=== PATIENT | male | born 1960 | race Caucasian/White ===

== ENCOUNTER 2023-04-22 12:07 | Inpatient (IN) | payer OTHER ==
[~2023-04-22] VITALS: Ht 172.7 cm; Wt 86.2 kg
[2023-04-22] MEDS ORDERED: DEXAMETHASONE SOD PHOSPHATE 4 MG INJ IV ONE (12:15)
[2023-04-22] MEDS ORDERED: IV NORMAL SALINE 1000 ML BAG IV ONE (12:15)
[2023-04-22] MEDS ORDERED: CEFTRIAXONE 1 G in IV DEXTROSE 5% 50 ML IV ONE (12:15)
[2023-04-22] MEDS ORDERED: AZITHROMYCIN 250 MG TABLET PO ONE (12:15)
[2023-04-22] MEDS ORDERED: VANCOMYCIN IV 1,000 MG in IV DEXTROSE 5% 250 ML IV ONE (12:15)
[2023-04-22 12:52] LABS: BASOPHILS # (AUTO) 0.1 K/UL (0.0-0.2); BASOPHILS % (AUTO) 0.7 % (0.0-2.0); EOSINOPHILS % (AUTO) 0.3 % (0.0-7.0); HEMATOCRIT 39.9 % (36.7-47.1); HEMOGLOBIN 13.9 g/dL (12.5-16.3); LYMPHOCYTES # (AUTO) 0.8 K/uL (0.8-4.8); MEAN CORPUSCULAR HEMOGLOBIN 30.3 uug (23.8-33.4); MEAN CORPUSCULAR HGB CONC 35 g/dL (32.5-36.3); MEAN CORPUSCULAR VOLUME 87.1 fL (73.0-96.2); MONOCYTES # (AUTO) 1.3 K/uL (0.1-1.30); MONOCYTES % (AUTO) 13.2 % (0.0-11.0); NEUTROPHILS # (AUTO) 7.7 K/uL (1.8-8.9); NEUTROPHILS % (AUTO) 77.8 % (38.5-71.5); PLATELET COUNT (AUTO) 250 K/uL (152-348); RED BLOOD CELL COUNT(AUTO) 4.59 MIL/uL (4.06-5.63); RED CELL DISTRIBUTION WIDTH 12.6 % (12.1-16.2); WHITE BLOOD COUNT (AUTO) 9.9 K/uL (3.6-10.2)
[2023-04-22 12:59] LABS: DIFFERENTIAL COMMENT 1
[2023-04-22] MEDS ORDERED: AZITHROMYCIN 250 MG TABLET ONE (13:00)
[2023-04-22] MEDS ORDERED: VANCOMYCIN IV 200 ML ONE (13:00)
[2023-04-22] MEDS ORDERED: CEFTRIAXONE /D5W 50ML IVPB **ER PYXIS IV ONE (13:00)
[2023-04-22] MEDS ORDERED: DEXAMETHASONE SOD PHOSPHATE 10 MG INJ ONE (14:06)
[2023-04-22 14:08] LABS: LACTATE DEHYDROGENASE 139 U/L (85-227)
[2023-04-22 14:44] LABS: CALCIUM 9.4 mg/dL (8.5-10.1); CARBON DIOXIDE 24 mmol/L (21-32); CHLORIDE 98 mmol/L (98-107); CREATININE 1.1 mg/dL (0.6-1.3); GLUCOSE 117 mg/dL (74-106); POTASSIUM 3.5 mmol/L (3.5-5.1); SODIUM SERUM 134 mmol/L (136-145); UREA NITROGEN, BLOOD 16 mg/dL (7-18)
[2023-04-22 14:57] LABS: ALANINE AMINOTRANSFERASE 19 U/L (16-63); ALBUMIN 2.9 g/dL (3.4-5.0); ALKALINE PHOSPHATASE 58 U/L (50-136); ASPARTATE AMINOTRANSFERASE 12 U/L (15-37); BILIRUBIN,DIRECT 0.2 mg/dL (0.0-0.2); BILIRUBIN,TOTAL 0.6 mg/dL (0.2-1.0); NT-PRO BNP 195 pg/mL (0-125); TOTAL PROTEIN, SERUM 7.1 g/dL (6.4-8.2)
[2023-04-22] MEDS ORDERED: IOHEXOL 300MG/ML 100 ML INFUS..BTL ONE (15:21)
[2023-04-22] MEDS ORDERED: SWABABLE VALVE TRANSFER SET EA MC ONE (15:21)
[2023-04-22] MEDS ORDERED: IV NORMAL SALINE 250 ML IV ONE (15:21)
[2023-04-22 15:50] LABS: FERRITIN 464 ng/mL (26-388)
[2023-04-22 18:14] VITALS: O2SAT 96
[2023-04-22] MEDS ORDERED: ACETAMINOPHEN 325 MG TABLET PO PRN (18:30)
[2023-04-22] MEDS ORDERED: ACETAMINOPHEN 650 MG SUPP.RECT RC PRN (18:30)
[2023-04-22 20:55] VITALS: O2SAT 94
[2023-04-22 23:03] VITALS: BP 136/78; TEMP 98.7; O2SAT 96
[2023-04-23 04:24] VITALS: O2SAT 94
[2023-04-23 04:40] VITALS: BP 113/58; TEMP 98.6; O2SAT 93
[2023-04-23 05:15] LABS: ABG BASE EXCESS 2.4 mmol/L; ABG PH 7.465 (7.350-7.450); ABG SITE RIGHT RADIAL; ABG TOTAL HEMOGLOBIN 14.2 G/dL (13.5-18.0); COHb 0.5 % (0.5-1.5); MetHb 0.3 % (0.0-1.5); O2Hb 92.1 % (94.0-97.0)
[2023-04-23 07:16] LABS: BASOPHILS % (AUTO) 0.1 % (0.0-2.0); EOSINOPHILS % (AUTO) 0.1 % (0.0-7.0); HEMATOCRIT 38.5 % (36.7-47.1); HEMOGLOBIN 13.6 g/dL (12.5-16.3); LYMPHOCYTES # (AUTO) 0.6 K/uL (0.8-4.8); LYMPHOCYTES % (AUTO) 9.1 % (20.5-51.5); MEAN CORPUSCULAR HEMOGLOBIN 30.4 uug (23.8-33.4); MEAN CORPUSCULAR HGB CONC 35 g/dL (32.5-36.3); MEAN CORPUSCULAR VOLUME 86.4 fL (73.0-96.2); MONOCYTES # (AUTO) 0.3 K/uL (0.1-1.30); MONOCYTES % (AUTO) 5.2 % (0.0-11.0); NEUTROPHILS # (AUTO) 5.5 K/uL (1.8-8.9); NEUTROPHILS % (AUTO) 85.5 % (38.5-71.5); PLATELET COUNT (AUTO) 291 K/uL (152-348); RED BLOOD CELL COUNT(AUTO) 4.46 MIL/uL (4.06-5.63); RED CELL DISTRIBUTION WIDTH 12.7 % (12.1-16.2); WHITE BLOOD COUNT (AUTO) 6.5 K/uL (3.6-10.2)
[2023-04-23 07:32] LABS: DIFFERENTIAL COMMENT 1
[2023-04-23 07:36] LABS: ALBUMIN 2.8 g/dL (3.4-5.0); BILIRUBIN,TOTAL 0.4 mg/dL (0.2-1.0); CALCIUM 9.1 mg/dL (8.5-10.1); CREATININE 1.1 mg/dL (0.6-1.3); TOTAL PROTEIN, SERUM 7.3 g/dL (6.4-8.2)
[2023-04-23 07:44] LABS: IRON, SERUM 20 ug/dL (50-175)
[2023-04-23] MEDS: DEXAMETHASONE SOD PHOSPHATE 4 MG INJ IV SCH (09:08)
[2023-04-23] MEDS: ENOXAPARIN SODIUM 40 MG/0.4 ML DISP.SYRIN SQ SCH (09:09)
[2023-04-23] MEDS: ALBUTEROL SULFATE 8 GM HFA.AER.AD IH PRN ×2 (09:26→19:02)
[2023-04-23] MEDS ORDERED: BENZONATATE 100 MG CAPSULE PO PRN (10:15)
[2023-04-23] MEDS ORDERED: SULFACETAMIDE SOD 10% OPHT DR 15 ML BOTTLE EACHEYE SCH (11:31)
[2023-04-23 11:54] VITALS: BP 132/72; TEMP 98.2; O2SAT 93
[2023-04-23 12:00] VITALS: O2SAT 93
[2023-04-23] MEDS ORDERED: REMDESIVIR (CHARGED) 200 MG in IV NORMAL SALINE 210 ML IV ONE (12:00)
[2023-04-23] MEDS: SULFACETAMIDE SOD 10% OPHT DR 15 ML BOTTLE EACHEYE SCH ×2 (12:36→21:05)
[2023-04-23] MEDS: CEFTRIAXONE 1 G in IV DEXTROSE 5% 50 ML IV SCH (14:24)
[2023-04-23] MEDS: AZITHROMYCIN IV 500 MG in IV DEXTROSE 5% 250 ML IV SCH (15:07)
[2023-04-23 19:58] VITALS: BP 124/62; TEMP 97.7; O2SAT 94
[2023-04-23] MEDS: TEMAZEPAM 15 MG CAPSULE PO PRN (20:51)
[2023-04-23 23:55] VITALS: BP 135/55; TEMP 97.1; O2SAT 93
[2023-04-24 05:29] VITALS: O2SAT 95
[2023-04-24 05:30] VITALS: BP 133/69; TEMP 97.1; O2SAT 95
[2023-04-24 07:05] LABS: HEMATOCRIT 39.4 % (36.7-47.1); HEMOGLOBIN 13.7 g/dL (12.5-16.3); LYMPHOCYTES % (AUTO) 5.9 % (20.5-51.5); MEAN CORPUSCULAR HEMOGLOBIN 30.1 uug (23.8-33.4); MEAN CORPUSCULAR HGB CONC 35 g/dL (32.5-36.3); MEAN CORPUSCULAR VOLUME 86.7 fL (73.0-96.2); MONOCYTES # (AUTO) 0.6 K/uL (0.1-1.30); MONOCYTES % (AUTO) 3.5 % (0.0-11.0); NEUTROPHILS # (AUTO) 14.5 K/uL (1.8-8.9); NEUTROPHILS % (AUTO) 90.6 % (38.5-71.5); PLATELET COUNT (AUTO) 324 K/uL (152-348); RED BLOOD CELL COUNT(AUTO) 4.54 MIL/uL (4.06-5.63); RED CELL DISTRIBUTION WIDTH 12.6 % (12.1-16.2); WHITE BLOOD COUNT (AUTO) 16.1 K/uL (3.6-10.2)
[2023-04-24 07:19] LABS: DIFFERENTIAL COMMENT 1
[2023-04-24 07:30] LABS: ALANINE AMINOTRANSFERASE 20 U/L (16-63); ALBUMIN 2.6 g/dL (3.4-5.0); ALKALINE PHOSPHATASE 54 U/L (50-136); ASPARTATE AMINOTRANSFERASE 18 U/L (15-37); BILIRUBIN,DIRECT < 0.1 mg/dL (0.0-0.2); BILIRUBIN,TOTAL 0.3 mg/dL (0.2-1.0); CALCIUM 9.1 mg/dL (8.5-10.1); CARBON DIOXIDE 29 mmol/L (21-32); CHLORIDE 103 mmol/L (98-107); CREATININE 0.9 mg/dL (0.6-1.3); GLUCOSE 138 mg/dL (74-106); POTASSIUM 4.3 mmol/L (3.5-5.1); SODIUM SERUM 137 mmol/L (136-145); TOTAL PROTEIN, SERUM 6.7 g/dL (6.4-8.2); UREA NITROGEN, BLOOD 22 mg/dL (7-18)
[2023-04-24 08:48] LABS: C-REACTIVE PROTEIN 4.4 mg/dL (0.0-0.9)
[2023-04-24] MEDS: SULFACETAMIDE SOD 10% OPHT DR 15 ML BOTTLE EACHEYE SCH ×3 (09:00→21:13)
[2023-04-24] MEDS: DEXAMETHASONE SOD PHOSPHATE 4 MG INJ IV SCH (10:23)
[2023-04-24] MEDS: ENOXAPARIN SODIUM 40 MG/0.4 ML DISP.SYRIN SQ SCH (10:25)
[2023-04-24] MEDS: CEFTRIAXONE 1 G in IV DEXTROSE 5% 50 ML IV SCH (12:08)
[2023-04-24] MEDS: REMDESIVIR (CHARGED) 100 MG in IV NORMAL SALINE 100 ML IV SCH (12:08)
[2023-04-24] MEDS: AZITHROMYCIN IV 500 MG in IV DEXTROSE 5% 250 ML IV SCH (13:20)
[2023-04-24 17:11] VITALS: O2SAT 93
[2023-04-24 20:00] VITALS: BP 134/72; TEMP 98; O2SAT 95
[2023-04-24] MEDS: TEMAZEPAM 15 MG CAPSULE PO PRN (21:33)
[2023-04-25] VITALS (7 sets, daily range): BP systolic 124–147; BP diastolic 64–72; TEMP 97.4–97.8; O2SAT 93–96
[2023-04-25 08:02] LABS: BASOPHILS % (AUTO) 0.1 % (0.0-2.0); HEMATOCRIT 38.5 % (36.7-47.1); HEMOGLOBIN 13.4 g/dL (12.5-16.3); LYMPHOCYTES # (AUTO) 0.9 K/uL (0.8-4.8); MEAN CORPUSCULAR HGB CONC 35 g/dL (32.5-36.3); MEAN CORPUSCULAR VOLUME 86.3 fL (73.0-96.2); MONOCYTES # (AUTO) 0.6 K/uL (0.1-1.30); MONOCYTES % (AUTO) 4.8 % (0.0-11.0); NEUTROPHILS # (AUTO) 11.8 K/uL (1.8-8.9); NEUTROPHILS % (AUTO) 88.1 % (38.5-71.5); PLATELET COUNT (AUTO) 343 K/uL (152-348); RED BLOOD CELL COUNT(AUTO) 4.46 MIL/uL (4.06-5.63); RED CELL DISTRIBUTION WIDTH 12.6 % (12.1-16.2); WHITE BLOOD COUNT (AUTO) 13.4 K/uL (3.6-10.2)
[2023-04-25 08:20] LABS: DIFFERENTIAL COMMENT 1
[2023-04-25 08:39] LABS: ALBUMIN 2.4 g/dL (3.4-5.0); BILIRUBIN,DIRECT 0.1 mg/dL (0.0-0.2); BILIRUBIN,TOTAL 0.3 mg/dL (0.2-1.0); CALCIUM 8.5 mg/dL (8.5-10.1); CREATININE 0.9 mg/dL (0.6-1.3); POTASSIUM 4.2 mmol/L (3.5-5.1); TOTAL PROTEIN, SERUM 6.2 g/dL (6.4-8.2)
[2023-04-25] MEDS ORDERED: FUROSEMIDE 40 MG/4 ML VIAL IV SCH (10:30)
[2023-04-25] MEDS ORDERED: FUROSEMIDE 20 MG/2 ML VIAL IVP ONE (10:45)
[2023-04-25] MEDS: DEXAMETHASONE SOD PHOSPHATE 4 MG INJ IV SCH (11:17)
[2023-04-25] MEDS: ENOXAPARIN SODIUM 40 MG/0.4 ML DISP.SYRIN SQ SCH (11:28)
[2023-04-25] MEDS: REMDESIVIR (CHARGED) 100 MG in IV NORMAL SALINE 100 ML IV SCH (11:29)
[2023-04-25] MEDS: SULFACETAMIDE SOD 10% OPHT DR 15 ML BOTTLE EACHEYE SCH ×4 (12:10→22:38)
[2023-04-25] MEDS: CEFTRIAXONE 1 G in IV DEXTROSE 5% 50 ML IV SCH (13:13)
[2023-04-25] MEDS: AZITHROMYCIN IV 500 MG in IV DEXTROSE 5% 250 ML IV SCH (13:52)
[2023-04-26] VITALS (8 sets, daily range): BP systolic 123–152; BP diastolic 65–81; TEMP 97.5–98.6; O2SAT 90–98
[2023-04-26] MEDS: TEMAZEPAM 15 MG CAPSULE PO PRN ×2 (00:51→21:54)
[2023-04-26 07:05] LABS: BASOPHILS % (AUTO) 0.2 % (0.0-2.0); HEMATOCRIT 41.6 % (36.7-47.1); HEMOGLOBIN 14.4 g/dL (12.5-16.3); LYMPHOCYTES # (AUTO) 1.1 K/uL (0.8-4.8); LYMPHOCYTES % (AUTO) 8.4 % (20.5-51.5); MEAN CORPUSCULAR HEMOGLOBIN 29.8 uug (23.8-33.4); MEAN CORPUSCULAR HGB CONC 35 g/dL (32.5-36.3); MEAN CORPUSCULAR VOLUME 86.4 fL (73.0-96.2); MONOCYTES # (AUTO) 0.9 K/uL (0.1-1.30); MONOCYTES % (AUTO) 6.4 % (0.0-11.0); NEUTROPHILS # (AUTO) 11.6 K/uL (1.8-8.9); PLATELET COUNT (AUTO) 336 K/uL (152-348); RED BLOOD CELL COUNT(AUTO) 4.82 MIL/uL (4.06-5.63); RED CELL DISTRIBUTION WIDTH 12.5 % (12.1-16.2); WHITE BLOOD COUNT (AUTO) 13.7 K/uL (3.6-10.2)
[2023-04-26 07:13] LABS: DIFFERENTIAL COMMENT 1
[2023-04-26 07:16] LABS: ALBUMIN 2.6 g/dL (3.4-5.0); BILIRUBIN,DIRECT 0.1 mg/dL (0.0-0.2); BILIRUBIN,TOTAL 0.3 mg/dL (0.2-1.0); CALCIUM 8.6 mg/dL (8.5-10.1); POTASSIUM 4.1 mmol/L (3.5-5.1); TOTAL PROTEIN, SERUM 6.3 g/dL (6.4-8.2)
[2023-04-26] MEDS: ALBUTEROL SULFATE 8 GM HFA.AER.AD IH PRN (08:00)
[2023-04-26] MEDS: DEXAMETHASONE SOD PHOSPHATE 4 MG INJ IV SCH (08:18)
[2023-04-26] MEDS: SULFACETAMIDE SOD 10% OPHT DR 15 ML BOTTLE EACHEYE SCH ×3 (08:19→21:54)
[2023-04-26] MEDS: ENOXAPARIN SODIUM 40 MG/0.4 ML DISP.SYRIN SQ SCH (08:21)
[2023-04-26] MEDS: REMDESIVIR (CHARGED) 100 MG in IV NORMAL SALINE 100 ML IV SCH (11:19)
[2023-04-26] MEDS: CEFTRIAXONE 1 G in IV DEXTROSE 5% 50 ML IV SCH (12:27)
[2023-04-26] MEDS: AZITHROMYCIN IV 500 MG in IV DEXTROSE 5% 250 ML IV SCH (13:56)
[2023-04-27 05:19] VITALS: O2SAT 92
[2023-04-27 05:51] LABS: *AMPHETAMINE, URINE NEGATIVE (NEGATIVE); *BARBITURATE, URINE NEGATIVE (NEGATIVE); *BENZODIAZEPINE, URINE NEGATIVE (NEGATIVE); *CANNABINOID, URINE NEGATIVE (NEGATIVE); *COCCAINE, URINE NEGATIVE (NEGATIVE); *OPIATE, URINE NEGATIVE (NEGATIVE); *PHENCYCLIDINE SCREEN,URINE NEGATIVE (NEGATIVE); FENTANYL, URINE NEGATIVE (NEGATIVE)
[2023-04-27 07:09] LABS: BASOPHILS % (AUTO) 0.3 % (0.0-2.0); DIFFERENTIAL COMMENT 1; EOSINOPHILS % (AUTO) 0.1 % (0.0-7.0); HEMATOCRIT 44.2 % (36.7-47.1); HEMOGLOBIN 15.3 g/dL (12.5-16.3); LYMPHOCYTES # (AUTO) 1.6 K/uL (0.8-4.8); LYMPHOCYTES % (AUTO) 11.4 % (20.5-51.5); MEAN CORPUSCULAR HEMOGLOBIN 29.9 uug (23.8-33.4); MEAN CORPUSCULAR HGB CONC 35 g/dL (32.5-36.3); MEAN CORPUSCULAR VOLUME 86.1 fL (73.0-96.2); MONOCYTES % (AUTO) 7.3 % (0.0-11.0); NEUTROPHILS # (AUTO) 11.6 K/uL (1.8-8.9); NEUTROPHILS % (AUTO) 80.9 % (38.5-71.5); PLATELET COUNT (AUTO) 365 K/uL (152-348); RED BLOOD CELL COUNT(AUTO) 5.13 MIL/uL (4.06-5.63); RED CELL DISTRIBUTION WIDTH 12.6 % (12.1-16.2); WHITE BLOOD COUNT (AUTO) 14.3 K/uL (3.6-10.2)
[2023-04-27 07:32] LABS: ALBUMIN 2.7 g/dL (3.4-5.0); BILIRUBIN,DIRECT 0.1 mg/dL (0.0-0.2); BILIRUBIN,TOTAL 0.4 mg/dL (0.2-1.0); CALCIUM 8.7 mg/dL (8.5-10.1); CREATININE 0.9 mg/dL (0.6-1.3); POTASSIUM 4.1 mmol/L (3.5-5.1); TOTAL PROTEIN, SERUM 6.4 g/dL (6.4-8.2)
[2023-04-27] MEDS: DEXAMETHASONE SOD PHOSPHATE 4 MG INJ IV SCH (09:30)
[2023-04-27] MEDS: SULFACETAMIDE SOD 10% OPHT DR 15 ML BOTTLE EACHEYE SCH ×3 (09:30→21:05)
[2023-04-27] MEDS: ENOXAPARIN SODIUM 40 MG/0.4 ML DISP.SYRIN SQ SCH (09:31)
[2023-04-27] MEDS: REMDESIVIR (CHARGED) 100 MG in IV NORMAL SALINE 100 ML IV SCH (12:20)
[2023-04-27] MEDS: CEFTRIAXONE 1 G in IV DEXTROSE 5% 50 ML IV SCH (13:25)
[2023-04-27 15:00] VITALS: O2SAT 96
[2023-04-27 16:32] VITALS: BP 126/68; TEMP 98.1; O2SAT 92
[2023-04-27 20:50] VITALS: BP 118/68; TEMP 98.1; O2SAT 96
[2023-04-27 20:57] VITALS: O2SAT 96
[2023-04-27] MEDS: TEMAZEPAM 15 MG CAPSULE PO PRN (21:05)
[2023-04-28 00:18] VITALS: BP 147/79; TEMP 98.2; O2SAT 96
[2023-04-28 04:20] VITALS: BP 114/74; TEMP 98; O2SAT 94
[2023-04-28 06:13] LABS: BASOPHILS % (AUTO) 0.2 % (0.0-2.0); EOSINOPHILS # (AUTO) 0.1 K/uL (0.0-0.7); EOSINOPHILS % (AUTO) 0.6 % (0.0-7.0); HEMATOCRIT 42.8 % (36.7-47.1); HEMOGLOBIN 14.8 g/dL (12.5-16.3); LYMPHOCYTES # (AUTO) 1.9 K/uL (0.8-4.8); LYMPHOCYTES % (AUTO) 14.6 % (20.5-51.5); MEAN CORPUSCULAR HEMOGLOBIN 29.9 uug (23.8-33.4); MEAN CORPUSCULAR HGB CONC 35 g/dL (32.5-36.3); MEAN CORPUSCULAR VOLUME 86.2 fL (73.0-96.2); MONOCYTES # (AUTO) 0.9 K/uL (0.1-1.30); NEUTROPHILS # (AUTO) 9.8 K/uL (1.8-8.9); NEUTROPHILS % (AUTO) 77.6 % (38.5-71.5); PLATELET COUNT (AUTO) 360 K/uL (152-348); RED BLOOD CELL COUNT(AUTO) 4.96 MIL/uL (4.06-5.63); RED CELL DISTRIBUTION WIDTH 12.6 % (12.1-16.2); WHITE BLOOD COUNT (AUTO) 12.7 K/uL (3.6-10.2)
[2023-04-28 06:15] LABS: DIFFERENTIAL COMMENT 1
[2023-04-28 06:48] LABS: ALBUMIN 2.7 g/dL (3.4-5.0); C-REACTIVE PROTEIN 0.6 mg/dL (0.0-0.9); CALCIUM 8.7 mg/dL (8.5-10.1); MAGNESIUM 2.5 mg/dL (1.8-2.4)
[2023-04-28 07:22] LABS: BILIRUBIN,DIRECT 0.1 mg/dL (0.0-0.2); BILIRUBIN,TOTAL 0.5 mg/dL (0.2-1.0); PHOSPHOROUS 3.7 mg/dL (2.5-4.9); TOTAL PROTEIN, SERUM 6.3 g/dL (6.4-8.2)
[2023-04-28 07:54] VITALS: BP 141/77; TEMP 97.3; O2SAT 93
[2023-04-28] MEDS: SULFACETAMIDE SOD 10% OPHT DR 15 ML BOTTLE EACHEYE SCH ×3 (09:14→21:52)
[2023-04-28] MEDS: DEXAMETHASONE SOD PHOSPHATE 4 MG INJ IV SCH (09:14)
[2023-04-28] MEDS: ENOXAPARIN SODIUM 40 MG/0.4 ML DISP.SYRIN SQ SCH (09:16)
[2023-04-28] MEDS ORDERED: REMDESIVIR (CHARGED) 100 MG in IV NORMAL SALINE 230 ML IV SCH (12:00)
[2023-04-28] MEDS: CEFTRIAXONE 1 G in IV DEXTROSE 5% 50 ML IV SCH (14:08)
[2023-04-28] MEDS ORDERED: IOHEXOL 350 100 ML INFUS..BTL ONE (15:53)
[2023-04-28] MEDS ORDERED: IV NORMAL SALINE 250 ML IV ONE (15:53)
[2023-04-28] MEDS ORDERED: SWABABLE VALVE TRANSFER SET EA MC ONE (15:53)
[2023-04-28 16:37] VITALS: O2SAT 94
[2023-04-28 20:50] VITALS: O2SAT 96
[2023-04-28 21:50] VITALS: TEMP 98.2; O2SAT 95
[2023-04-28] MEDS: TEMAZEPAM 15 MG CAPSULE PO PRN (21:58)
[2023-04-29 04:51] VITALS: BP 138/76; TEMP 98; O2SAT 98
[2023-04-29 05:43] LABS: BASOPHILS % (AUTO) 0.2 % (0.0-2.0); EOSINOPHILS # (AUTO) 0.1 K/uL (0.0-0.7); EOSINOPHILS % (AUTO) 0.8 % (0.0-7.0); HEMATOCRIT 42.8 % (36.7-47.1); HEMOGLOBIN 14.8 g/dL (12.5-16.3); LYMPHOCYTES # (AUTO) 1.7 K/uL (0.8-4.8); LYMPHOCYTES % (AUTO) 12.4 % (20.5-51.5); MEAN CORPUSCULAR HEMOGLOBIN 29.8 uug (23.8-33.4); MEAN CORPUSCULAR HGB CONC 35 g/dL (32.5-36.3); MEAN CORPUSCULAR VOLUME 86.3 fL (73.0-96.2); MONOCYTES # (AUTO) 0.9 K/uL (0.1-1.30); MONOCYTES % (AUTO) 6.4 % (0.0-11.0); NEUTROPHILS % (AUTO) 80.2 % (38.5-71.5); PLATELET COUNT (AUTO) 360 K/uL (152-348); RED BLOOD CELL COUNT(AUTO) 4.96 MIL/uL (4.06-5.63); RED CELL DISTRIBUTION WIDTH 12.5 % (12.1-16.2); WHITE BLOOD COUNT (AUTO) 13.7 K/uL (3.6-10.2)
[2023-04-29 06:14] VITALS: BP 157/96; O2SAT 95
[2023-04-29 06:21] LABS: DIFFERENTIAL COMMENT 1
[2023-04-29 06:41] LABS: ALBUMIN 2.6 g/dL (3.4-5.0); BILIRUBIN,DIRECT 0.1 mg/dL (0.0-0.2); BILIRUBIN,TOTAL 0.4 mg/dL (0.2-1.0); CALCIUM 8.4 mg/dL (8.5-10.1); CREATININE 0.9 mg/dL (0.6-1.3); POTASSIUM 4.2 mmol/L (3.5-5.1)
[2023-04-29] MEDS: DEXAMETHASONE SOD PHOSPHATE 4 MG INJ IV SCH (08:53)
[2023-04-29] MEDS: [UNRECOGNIZED DRUG - OTHER] PO SCH (08:53)
[2023-04-29] MEDS: SULFACETAMIDE SOD 10% OPHT DR 15 ML BOTTLE EACHEYE SCH ×3 (08:53→20:06)
[2023-04-29] MEDS: ENOXAPARIN SODIUM 40 MG/0.4 ML DISP.SYRIN SQ SCH (09:35)
[2023-04-29 10:23] LABS: BAND % (MANUAL) 2 % (0-10); EOSINOPHILS % (MANUAL) 3 % (0-8); LYMPHOCYTES % (MANUAL) 11 % (20-40); MONOCYTES % (MANUAL) 8 % (2-10); NEUTROPHILS % (MANUAL) 73 % (42-75); REACTIVE LYMPHOCYTES 3 % (0-0)
[2023-04-29 10:24] LABS: PLATELET ESTIMATE ADEQUATE
[2023-04-29 11:18] VITALS: BP 134/79; TEMP 98.2; O2SAT 92
[2023-04-29] MEDS: REMDESIVIR (CHARGED) 100 MG in IV NORMAL SALINE 100 ML IV SCH (11:52)
[2023-04-29] MEDS ORDERED: REMDESIVIR (CHARGED)100 MG in IV NORMAL SALINE 250 ML IV SCH (12:00)
[2023-04-29] MEDS: CEFTRIAXONE 1 G in IV DEXTROSE 5% 50 ML IV SCH (13:03)
[2023-04-29 16:15] VITALS: O2SAT 94
[2023-04-29 16:16] VITALS: BP 137/84; TEMP 98.4; O2SAT 96
[2023-04-29] MEDS ORDERED: LORAZEPAM 0.5 MG TABLET PO PRN (18:30)
[2023-04-29 21:00] VITALS: BP 148/68; TEMP 99; O2SAT 99
[2023-04-29] MEDS: TEMAZEPAM 15 MG CAPSULE PO PRN (21:52)
[2023-04-30 04:16] VITALS: O2SAT 98
[2023-04-30 06:29] LABS: BASOPHILS % (AUTO) 0.1 % (0.0-2.0); EOSINOPHILS # (AUTO) 0.2 K/uL (0.0-0.7); EOSINOPHILS % (AUTO) 2.1 % (0.0-7.0); HEMATOCRIT 43.2 % (36.7-47.1); HEMOGLOBIN 14.9 g/dL (12.5-16.3); LYMPHOCYTES # (AUTO) 1.6 K/uL (0.8-4.8); LYMPHOCYTES % (AUTO) 15.1 % (20.5-51.5); MEAN CORPUSCULAR HEMOGLOBIN 30.1 uug (23.8-33.4); MEAN CORPUSCULAR HGB CONC 35 g/dL (32.5-36.3); MEAN CORPUSCULAR VOLUME 87.3 fL (73.0-96.2); MONOCYTES # (AUTO) 0.9 K/uL (0.1-1.30); MONOCYTES % (AUTO) 8.1 % (0.0-11.0); NEUTROPHILS # (AUTO) 8.1 K/uL (1.8-8.9); NEUTROPHILS % (AUTO) 74.6 % (38.5-71.5); PLATELET COUNT (AUTO) 354 K/uL (152-348); RED BLOOD CELL COUNT(AUTO) 4.95 MIL/uL (4.06-5.63); RED CELL DISTRIBUTION WIDTH 12.9 % (12.1-16.2); WHITE BLOOD COUNT (AUTO) 10.8 K/uL (3.6-10.2)
[2023-04-30 06:39] LABS: DIFFERENTIAL COMMENT 1
[2023-04-30 06:47] LABS: ALBUMIN 2.6 g/dL (3.4-5.0); BILIRUBIN,DIRECT 0.2 mg/dL (0.0-0.2); BILIRUBIN,TOTAL 0.5 mg/dL (0.2-1.0); CALCIUM 8.6 mg/dL (8.5-10.1); CREATININE 1.1 mg/dL (0.6-1.3); POTASSIUM 4.2 mmol/L (3.5-5.1); TOTAL PROTEIN, SERUM 6.1 g/dL (6.4-8.2)
[2023-04-30] MEDS: [UNRECOGNIZED DRUG - OTHER] PO SCH (08:44)
[2023-04-30] MEDS: DEXAMETHASONE SOD PHOSPHATE 4 MG INJ IV SCH (08:44)
[2023-04-30] MEDS: ENOXAPARIN SODIUM 40 MG/0.4 ML DISP.SYRIN SQ SCH (08:46)
[2023-04-30 09:58] VITALS: BP 126/72; TEMP 98.2; O2SAT 95
[2023-04-30] MEDS: SULFACETAMIDE SOD 10% OPHT DR 15 ML BOTTLE EACHEYE SCH ×2 (10:06→14:35)
[2023-04-30] MEDS: REMDESIVIR (CHARGED) 100 MG in IV NORMAL SALINE 100 ML IV SCH (12:09)
[2023-04-30 12:57] VITALS: O2SAT 99
[2023-04-30 17:00] VITALS: BP 110/56; TEMP 98.1; O2SAT 96
[2023-04-30 21:17] VITALS: BP 112/75; TEMP 98.4; O2SAT 97
[2023-05-01 04:30] VITALS: BP 131/72; TEMP 98.3; O2SAT 97
[2023-05-01 07:24] LABS: BASOPHILS % (AUTO) 0.1 % (0.0-2.0); EOSINOPHILS # (AUTO) 0.1 K/uL (0.0-0.7); EOSINOPHILS % (AUTO) 1.3 % (0.0-7.0); HEMOGLOBIN 14.8 g/dL (12.5-16.3); LYMPHOCYTES # (AUTO) 1.6 K/uL (0.8-4.8); LYMPHOCYTES % (AUTO) 14.2 % (20.5-51.5); MEAN CORPUSCULAR HEMOGLOBIN 30.4 uug (23.8-33.4); MEAN CORPUSCULAR HGB CONC 35 g/dL (32.5-36.3); MEAN CORPUSCULAR VOLUME 86.5 fL (73.0-96.2); MONOCYTES # (AUTO) 0.9 K/uL (0.1-1.30); MONOCYTES % (AUTO) 8.6 % (0.0-11.0); NEUTROPHILS # (AUTO) 8.4 K/uL (1.8-8.9); NEUTROPHILS % (AUTO) 75.8 % (38.5-71.5); PLATELET COUNT (AUTO) 365 K/uL (152-348); RED BLOOD CELL COUNT(AUTO) 4.85 MIL/uL (4.06-5.63)
[2023-05-01 07:31] LABS: DIFFERENTIAL COMMENT 1
[2023-05-01 07:58] LABS: ALBUMIN 2.6 g/dL (3.4-5.0); BILIRUBIN,DIRECT 0.1 mg/dL (0.0-0.2); BILIRUBIN,TOTAL 0.5 mg/dL (0.2-1.0); CREATININE 0.9 mg/dL (0.6-1.3); POTASSIUM 4.4 mmol/L (3.5-5.1); TOTAL PROTEIN, SERUM 6.1 g/dL (6.4-8.2)
[2023-05-01 08:00] VITALS: BP 117/82; TEMP 98; O2SAT 97
[2023-05-01] MEDS: DEXAMETHASONE SOD PHOSPHATE 4 MG INJ IV SCH (09:21)
[2023-05-01] MEDS: [UNRECOGNIZED DRUG - OTHER] PO SCH (09:21)
[2023-05-01] MEDS: ENOXAPARIN SODIUM 40 MG/0.4 ML DISP.SYRIN SQ SCH (09:23)
[2023-05-01] MEDS: REMDESIVIR (CHARGED) 100 MG in IV NORMAL SALINE 100 ML IV SCH (12:16)
[2023-05-01 16:00] VITALS: BP 122/74; TEMP 98.2; O2SAT 97
[2023-05-01 16:33] VITALS: O2SAT 95
== END 2023-05-01 19:00 | disposition short-term general hospital (02) | DRG 177 ==
LOC: ER 12:23 → TELE3 20:00 → MEDSURG3 04-27 08:05 → TELE3 04-27 08:35 → MEDSURG3 04-30 01:00
PROVIDERS: ADMIT Nurse Practitioner Acute Care; ATTEND Nurse Practitioner Family
PROC: XW033E5 Introduction of Remdesivir Anti-infective into Peripheral Vein, Percutaneous Approach, New Technology Group 5 (ICD-10-PCS; principal; 2023-04-23)
DX: U07.1 COVID-19 (principal); J12.82 Pneumonia due to coronavirus disease 2019; J96.01 Acute respiratory failure with hypoxia; J15.9 Unspecified bacterial pneumonia; E44.0 Moderate protein-calorie malnutrition; J98.11 Atelectasis; J90 Pleural effusion, not elsewhere classified; E88.09 Other disorders of plasma-protein metabolism, not elsewhere classified; Z68.28 Body mass index [BMI] 28.0-28.9, adult
CPT/HCPCS: 36415; 36600; 70030-TC; 71045; 71260; 71275; 82803; 83550; 83605; 83615; 83735; 84100; 84484; 85025; 85610; 85730; 86140; 87040; 93005; 93307; 94760; 99082-TC; A4663; G0378; J0248; J0456; J0696; J1100; J1650; J1940; J3370; J3535; J7040; J7050; Q0144; Q9967